=== PATIENT | female | born 1955 | race Caucasian/White ===

== ENCOUNTER → 2019-10-29 10:25 | Outpatient (CLI) | payer OTHER, SELFPAY ==
--- NOTE | ~2019-10-29 | XR_ITS ---
EXAMINATION: XR chest 2V DATE: 10/29/2019 10:43 INDICATION: Shortness of breath. TECHNIQUE: Frontal and lateral views of the chest were obtained. COMPARISON: Chest 2 views 01/21/2007 FINDINGS: There is mild scarring at the lung apices. No pleural effusion or pneumothorax. There is a moderate-sized hiatal hernia. The heart size is normal. IMPRESSION: 1. Mild scarring at the lung apices. 2. Moderate-sized hiatal hernia. Reviewed, dictated and finalized at location B.
== END ==
PROVIDERS: PCP Family Medicine Adolescent Medicine; Visit Provider Physician Assistant
DX: R91.8 Other nonspecific abnormal finding of lung field (principal); K44.9 Diaphragmatic hernia without obstruction or gangrene
CPT/HCPCS: 71046

== ENCOUNTER → 2020-01-07 11:21 | Outpatient (CLI) | payer OTHER, SELFPAY ==
--- NOTE | ~2020-01-07 | US_ITS ---
EXAMINATION: US transvaginal DATE: 01/07/2020 11:56 INDICATION: Left ovarian cyst TECHNIQUE: Multiple endovaginal sonographic images of the pelvis were obtained. COMPARISON: 01/01/2019 FINDINGS: The uterus measures 6.5 x 3.2 x 3.6 cm. The endometrial complex measures 5 mm. The right ov damián measures 1.1 x 1.1 x 1.7 cm. The left ovary measures 2.9 x 2.6 x 3.0 cm and contains a stable 2.9 cm cyst. There is normal vascular flow in the ovaries. There is no free fluid in the pelvis. IMPRESSION: 1. Stable cyst of the left ovary. Could consider decrease in frequency of follow-up given stability ( typical follow-up is annually in a postmenopausal female). Reviewed, dictated and finalized at location A. ING SERVICES OFFICER IMPRESSION: 1. Stable cyst of the left ovary. Could consider decrease in frequency of follo w-up given stability (typical follow-up is annually in a postmenopausal female) .
== END ==
PROVIDERS: PCP Family Medicine Adolescent Medicine; Visit Provider Nurse Practitioner
DX: N83.202 Unspecified ovarian cyst, left side (principal)
CPT/HCPCS: 76830

== ENCOUNTER → 2020-03-03 10:01 | Outpatient (CLI) | payer OTHER, SELFPAY ==
--- NOTE | ~2020-03-03 | MM_ITS ---
EXAMINATION: MM screening [facility] BI w graeme HISTORY: Screening mammogram TECHNIQUE: Craniocaudal and mediolateral oblique 3-D tomosynthesis images were obtained and synthetic 2-D images were generated. CAD analysis was submitted and interpreted. COMPARISON: 02/05/2019, 01/31/2018, 01/01/2017 BREAST PARENCHYMAL COMPOSITION: There are scattered areas of fibroglandular density. FINDINGS: There is no evidence of suspicious mass, calcification, or architectural distortion to sugg est malignancy in either breast. There has been no suspicious interval change. IMPRESSION: 1. No mammographic evidence of malignancy. 2. Recommend routine screening mammography in one year. BI-RADS Category 1: Negative Reviewed, dictated and finalized at location A. SERVICE PERSON
== END ==
PROVIDERS: Visit Provider Nurse Practitioner
DX: Z12.31 Encounter for screening mammogram for malignant neoplasm of breast (principal)
CPT/HCPCS: 77063; 77067

== ENCOUNTER → 2020-11-24 01:45 | Outpatient (CLI) | payer OTHER, SELFPAY ==
[2020-11-24 17:06] LABS: SARS-CoV-2 RNA PCR Negative
== END ==
PROVIDERS: PCP Family Medicine Adolescent Medicine; Visit Provider Physician Assistant
DX: Z20.822 Contact with and (suspected) exposure to COVID-19 (principal)
CPT/HCPCS: C9803; U0003; U0005

== ENCOUNTER 2022-09-07 15:23 | Outpatient (CLI) | payer MEDICARE, SELFPAY ==
--- NOTE | ~2022-09-07 | US_ITS ---
EXAMINATION: US transvaginal DATE: 09/07/2022 15:56 INDICATION: Left ovarian cyst TECHNIQUE: Multiple endovaginal sonographic images of the pelvis were obtained. COMPARISON: 01/07/2020 FINDINGS: The uterus measures 5.4 x 3.4 x 3.6 cm. The endometrial complex measures 4 mm in thickness. The righ t ovary is not visualized. The left ovary measures 3.3 x 3.2 x 3.3 cm. No interval change in a 2.9 x 2.7 x 2.6 cm anechoic left ovarian cyst. Subtle vascular flow at the left ovary but not within the ov elle cyst on color Doppler. There is no free fluid in the pelvis. IMPRESSION: 1. No interval change in a simple appearing 2.7 cm left ovarian cyst. Reviewed, dictated and finalized at location B.
== END 2022-09-07 15:24 ==
LOC: MICIMG 15:27
PROVIDERS: PCP Nurse Practitioner; Visit Provider Nurse Practitioner
DX: N83.202 Unspecified ovarian cyst, left side (principal)
CPT/HCPCS: 76830

== ENCOUNTER → 2022-12-17 11:01 | Outpatient (CLI) | payer MEDICARE, SELFPAY ==
--- NOTE | ~2022-12-17 | MM_ITS ---
EXAMINATION: MM screening [facility] BI w graeme HISTORY: Screening TECHNIQUE: Craniocaudal and mediolateral oblique 3-D tomosynthesis images were obtained and synthetic 2-D images were generated. CAD analysis was submitted and interpreted. COMPARISON: Comparison to multiple prior studies sequentially, with oldest reviewed study dated 09/2014. BREAST PARENCHYMAL COMPOSITION: Breast composed of scattered areas of fibroglandular density FINDINGS: There is no evidence of suspicious mass, calcification, or architectural distortion to sugg est malignancy in either breast. There has been no suspicious interval change. IMPRESSION: 1. No mammographic evidence of malignancy. 2. Recommend routine screening mammography in one year. BI-RADS Category 1: Negative Reviewed, dictated and finalized at location A.
--- NOTE | ~2022-12-17 | DEXA_ITS ---
Bone Density Report Name: NIMA REYNOSO Age: 67 Sex: Female Ethnicity: White Date of : 1955 Indication: postmenopausal; screening for osteoporosis; height loss; Referring Provider: BARRON, LEROY Study: Bone densitometry was performed. Exam Date: December 17, 2022 Accession number: [id number] Bone Density: Region BMD T-score Z-score Classification AP Spine (L1-L4) 1.106 0.5 2.4 Normal Femoral Neck (Left) 0.712 -1.2 0.4 Osteopenia Total Hip (Left) 0.934 -0.1 1.2 Normal Femoral Neck (Right) 0.722 -1.1 0.4 Osteopenia Total Hip (Right) 0.863 -0.7 0.7 Normal Total Hip Mean 0.899 -0.4 1.0 Normal World Health Organization criteria for BMD impression classify patients as: Normal (T-score at or above -1.0), Osteopenia (T-score between -1.0 and -2.5), or Osteoporosis (T-score at or below -2.5). 10-year Fracture Risk(1): Major Osteoporotic Fracture 8.0% Hip Fracture 0.7% Reported Risk Factors: [place] (), Neck BMD=0.712, BMI=35.5 (1) FRAX(R) Version 3.08. Fracture probability calculated for an untreated patient. Fracture probability may be lower if the patient has received treatment. Previous Exams: Region Exam Age BMD T-score BMD Change BMD Change Date g/cm2 vs Baseline vs Previous AP Spine(L1-L4) 12/17/2022 67 1.106 0.5 0.040 0.035 02/05/2019 63 1.071 0.2 0.005 -0.001 01/01/2017 61 1.072 0.2 0.006 0.006 03/17/2012 56 1.066 0.2 Total Hip(Left) 12/17/2022 67 0.934 -0.1 0.062 0.025 02/05/2019 63 0.909 -0.3 0.037* 0.018 01/01/2017 61 0.891 -0.4 0.019 0.019 03/17/2012 56 0.872 -0.6 Total Hip(Right) 12/17/2022 67 0.863 -0.7 -0.006 0.011 02/05/2019 63 0.851 -0.7 -0.017 -0.007 01/01/2017 61 0.859 -0.7 -0.010 -0.010 03/17/2012 56 0.868 -0.6 *Denotes significance at 95% confidence level, LSC for AP Spine = 0.022 g/cm2, LSC for Total Hip = 0.027 g/cm2 Clinical Information Provided by Patient: Has used the following medications: Vitamin D Patient maximum height was 65 Menopause Age: 53 No regular weight bearing exercise Drinks caffeinated beverages Onset of menses at age 12 Number of children 2 Impression: The patient has low bone mass, based on the Left Femoral Neck T-score. The
== END ==
PROVIDERS: PCP Nurse Practitioner; Visit Provider Nurse Practitioner
DX: Z12.31 Encounter for screening mammogram for malignant neoplasm of breast (principal); Z78.0 Asymptomatic menopausal state; M85.88 Other specified disorders of bone density and structure, other site
CPT/HCPCS: 77063; 77067; 77080

== ENCOUNTER 2024-01-31 11:13 | Outpatient (CLI) | payer MEDICARE, SELFPAY ==
--- NOTE | ~2024-01-31 | MM_ITS ---
EXAMINATION: MM screening [facility] BI w graeme HISTORY: Screening mammogram TECHNIQUE: Craniocaudal and mediolateral oblique 3-D tomosynthesis images were obtained and synthetic 2-D images were generated. CAD analysis was submitted and interpreted. COMPARISON: No prior mammogram is available for comparison at this institution. BREAST PARENCHYMAL COMPOSITION: There are scattered areas of fibroglandular density. FINDINGS: Approximately 3 x 5 mm circumscribed low-density opacity is noted in the posterior mid righ t breast, likely a benign intramammary lymph node, not severely change since 03/03/2020. 2.9 x 4 mm circumscribed opacity is noted in the lower mid left breast (craniocaudal graeme symphysis i mage ; MLO graeme symphysis image /); diagnostic left mammogram and left breast ultrasound exa mination are recommended. Otherwise there is no evidence of suspicious mass, calcification, or architectural distortion to sugg est malignancy in either breast. There has been no other suspicious interval change. IMPRESSION: 1. 2.9 x 4 mm are clear of opacity in the lower mid left breast 2. Diagnostic left mammogram and left breast ultrasound examination recommended BI-RADS Category 0: Incomplete: Needs additional imaging evaluation. Reviewed, dictated and finalized at location A. AL ECOLOGIST
== END 2024-01-31 11:14 | disposition home or self-care (01) ==
LOC: MICIMG 11:13
PROVIDERS: PCP Family Medicine Adolescent Medicine; Visit Provider Nurse Practitioner
DX: Z12.31 Encounter for screening mammogram for malignant neoplasm of breast (principal)
CPT/HCPCS: 77063; 77067

== ENCOUNTER 2024-02-21 08:00 | Outpatient (CLI) | payer MEDICARE, SELFPAY ==
--- NOTE | ~2024-02-21 | MMUS_ITS ---
EXAMINATION: MM diagnostic [facility] LT w graeme, US breast LT limited HISTORY: Follow-up left breast mass TECHNIQUE: Additional 3-D tomosynthesis images of the left breast were performed and synthetic 2-D im ages were generated. CAD analysis was submitted and interpreted. High resolution Limited left breast ultrasound was performed. COMPARISON: Comparison to multiple prior studies sequentially, with oldest reviewed study dated 12/04. BREAST PARENCHYMAL COMPOSITION: Not dense: There are scattered areas of fibroglandular density. FINDINGS: MAMMOGRAPHIC FINDINGS: There is a small low-density mass in the lower central aspect of the left breast measuring 4 mm.. The re are no suspicious calcifications or architectural distortion. ULTRASOUND: Limited left breast ultrasound: Near the nipple there is a 4 mm cyst corresponding to the mammographi c finding. No sonographic evidence for malignancy. IMPRESSION: 1. No evidence for malignancy in the left breast. Benign finding. 2. Routine yearly screening mammogram and regular clinical breast examination are recommended. BI-RADS CATEGORY 2 - BENIGN FINDINGS Reviewed, dictated and finalized at location B. E SERVANT IMPRESSION: 1. No evidence for malignancy in the left breast. Benign finding. 2. Routine yearly screening mammogram and regular clinical breast examination a re recommended. BI-RADS CATEGORY 2 - BENIGN FINDINGS
== END 2024-02-21 08:01 | disposition home or self-care (01) ==
PROVIDERS: PCP Family Medicine Adolescent Medicine; Visit Provider Obstetrics & Gynecology Gynecology
DX: R92.8 Other abnormal and inconclusive findings on diagnostic imaging of breast (principal)
CPT/HCPCS: 76642; 77061; 77065; G0279

== ENCOUNTER 2024-09-09 00:54 | Day surgery (SDC) | payer MEDICARE, SELFPAY ==
[2024-08-19 13:33] VITALS: BMI 33.3
--- OUTSIDE RECORDS SUMMARY | 2024-09-09 00:59 | XMS_ITS | Encounter Summary ---
Author Organization [facility] Address 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
--- OUTSIDE RECORDS SUMMARY | 2024-09-09 00:59 | XMS_ITS | Clinical Summary ---
Author Organization [facility] Administrative Offices Address [address] [place] [address] Care Team Providers Care Transportation Aid Name Role Phone Jarrett Rodgers MD Primary Care Provider +1- [phone] Family History * Patient is adopted Medical History Relation Name Comments Breast Cancer Neg Hx unknown patien t is adopted Ovarian Cancer Neg Hx unknown patie nt is adopted Social History Tobacco Use Types Packs/Day Years Used Date Smoking Tobacco: Never Assessed Comments Unknown Sex and Gender Information Value Date Recorded Sex Assigned at Not on file Legal 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 Female 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 Gender Identity Not on file Sexual Orientation Not on file Plan of Treatment Health Maintenance Due Date Last Done Comments DTAP/TDAP/TD VACCINES (1 - Tdap) 05/19/1975 COLORECTAL SCREENING 2001 Colorectal Cancer Screening 2001 FIT-DNA Q 3 years 2001 FIT/FOBT Q 1 year 2001 Flex Sig/CT Colonography Q 5 years 2001 PNEUMOCOCCAL VACCINE 50+ YEA RS (1 of 1 - PCV) 2006 ZOSTER VACCINE (1 of 2) 2006 BREAST CANCER SCREENING 12/28/2011 12/28/19 11, 12/20/2009, 12/22/2007 OSTEOPOROSIS SCREENING 2021 INFLUENZA VACCINE (#1) 2024 RSV VACCINE (60+ or ) (1 - 1-dose 75+ series) 05/19/2031 Procedures Procedure Name Priority Date/Time Associated Diagnosis Comments MAMMO SCREEN BILAT W OR WO CAD Routine 12/27/2010 9:56 AM CDT Other screening mammogram from Last 3 Months or Most Recently Relevant to Health Maintenance Results * MAMMO DIGITAL SCREEN BILAT (12/27/2010 9:56 AM CDT) Anatomical Region Laterality Modality Breast Bilateral Mammography 12/27/2010 9:56 AM CDT Impressions 12/28/2010 4:17 PM CDT IMPRESSION: Stable screening mammogram Recommend routine followup OVERALL ASSESSMENT: BI-RADS 1 - Negative Narrative 12/28/2010 4:17 PM CDT BILATERAL SCREENING DIGITAL MAMMOGRAMS WITH COMPUTER ASSISTED DIAGNOSIS DATE OF EXAM: 12/27/10 HISTORY: Annual screening study. FINDINGS: Comparison is made to 12/22/07. The images were reviewed using the CAD system. The breast parenchyma is heterogeneously dense. No new dominant masses, suspicious calcifications or areas of parenchymal asymmetry or distortion are identified. Procedure Note Beth Robertson MD - 12/28/2010 BILATERAL SCREENING DIGITAL MAMMOGRAMS WITH COMPUTER ASSISTED DIAGNOSIS DATE OF EXAM: 12/27/10 HISTORY: Annual screening study. FINDINGS: Comparison is made to 12/22/07. The images were reviewed using the CAD system. The breast parenchyma is heterogeneously dense. No new dominant masses, suspicious calcifications or areas of parenchymal asymmetry or distortion are identified. IMPRESSION IMPRESSION: Stable screening mammogram Recommend routine followup OVERALL ASSESSMENT: BI-RADS 1 - Negative us Yara Alegria MD MAMMO ORDERABLES Final Re sult from Last 3 Months or Most Recently Relevant to Health Maintenance Insurance BCBS BLUE ACCESS/TRUE BLUE PPO Care Teams Transportation Aid Relationship Specialty Start Date End Date Jarrett Rodgers MD PCP - General 10/25/08
--- OUTSIDE RECORDS SUMMARY | 2024-09-09 00:59 | XMS_ITS | Encounter Summary ---
Author Organization [facility] Address 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
--- OUTSIDE RECORDS SUMMARY | 2024-09-09 00:59 | XMS_ITS | Encounter Summary ---
Author Organization [employer] Address 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
--- OUTSIDE RECORDS SUMMARY | 2024-09-09 00:59 | XMS_ITS | Encounter Summary ---
Author Organization [employer] [facility] Address 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
--- OUTSIDE RECORDS SUMMARY | 2024-09-09 00:59 | XMS_ITS | Encounter Summary ---
Author Organization [facility] Address 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 Gender Identity Not on file Sexual Orientation Not on file documented as of this encounter Plan of Treatment Not on file documented as of this encounter Procedures Procedure Name Priority Date/Time Associated Diagnosis Comments MAMMO SCREENING BILAT Routine 12/22/2007 3:32 PM CDT documented in this encounter Results * MAMMO SCREENING BILAT (12/22/2007 3:32 PM CDT) Anatomical Region Laterality Modality Breast Bilateral Other 12/22/2007 3:32 PM CDT Narrative 12/23/2007 1:17 PM CDT [facility] [address] [place], [place] [address] Admit Date: 12/22/2007 NIMA REYNOSO Sex: F Admit Prov: YARA GILLIAM Date: 1955 Primary Care Prov: JACKY MACK CMRN: [id number] [facility] [address] [place] [address] IMAGING SERVICES Ordering Prov: DOCTOR, MEÑO O Accession Number: [id number] Interpretation BILATERAL SCREENING MAMMOGRAM 12/22/2007 Reason for this examination: Annual screening study. FINDINGS: The parenchyma is very dense bilaterally. This lowers the sensitivity of mammography in detecting disease. There is no mass, malignant calcification, lymphadenopathy, architectural distortion or other sign of malignancy. No change since 12/2005. SUMMARY: Dense mammary parenchyma. No mammographic evidence of malignancy. Overall assessment: BIRADS category 1 - Negative Assessment BIRADS: 1-Negative Recommendation: Normal interval follow-up Dictated by: PHILIPPE MORATAYA Electronically signed by: PHILIPPE MORATAYA 12/23/2007 13:16 Transcribed: 12/23/2007 13:00 AMK Procedure Note Philippe Morataya MD - 12/23/2007 [facility] [address] [place], [place] [address] Admit Date: 12/22/2007 NIMA REYNOSO Sex: F Admit Prov: [id number] -YARA BLOUNT Date: 1955 Primary Care Prov: JACKY MACK CMRN: [id number] [facility] [address] [place] [address] IMAGING SERVICES Ordering Prov: DOCTOR, MEÑO O Interpretation BILATERAL SCREENING MAMMOGRAM 12/22/2007 Reason for this examination: Annual screening study. FINDINGS: The parenchyma is very dense bilaterally. This lowersthe sensitivity of mammography in detecting disease. There is no mass, malignant calcification, lymphadenopathy, architectural distortion orother sign of malignancy. No change since 12/2005. SUMMARY: Dense mammary parenchyma. No mammographic evidence of malignancy. Overall assessment: BIRADS category 1 - Negative Assessment BIRADS: 1-Negative Recommendation: Normal interval follow-up Dictated by: PHILIPPE MORATAYA Electronically signed by: PHILIPPE MORATAYA 12/23/2007 13:16 Transcribed: 12/23/2007 13:00 AMK us History Conversion MAMMO ORDERABLES Final Result documented in this encounter Visit Diagnoses Diagnosis Other screening mammogram documented in this encounter Care Teams [employer] Relationship Specialty Start Date End Date Jacky Rodgers MD PCP - General 10/25/08 documented as of this encounter
--- OUTSIDE RECORDS SUMMARY | 2024-09-09 00:59 | XMS_ITS | Encounter Summary ---
Author Organization [employer] Address [address] [place] [address] Care Team Providers Care Mds Manager Name Role Phone Jarrett Rodgers MD Primary Care Provider +1- [phone] Encounter Details Date Type Department Care Team (Late st Contact Info) Description 12/09/2001 Outpatient Historical HIS MAMM Yara Delcid MD [address] [address] SCREENING MAMM-MAILG NEOPL-OTHER (Primary Dx) Social History Tobacco Use Types Packs/Day Years Used Date Smoking Tobacco: Never Assessed Comments Unknown Sex and Gender Information Value Date Recorded Sex Assigned at Not on file Legal Sex Female 3:20 AM TUTOR COORDINATOR Gender Identity Not on file Sexual Orientation Not on file documented as of this encounter Plan of Treatment Not on file documented as of this encounter Visit Diagnoses Diagnosis Other screening mammogram- Primary documented in this encounter Care Teams Mds Manager Relationship Specialty Start Date End Date Jarrett Rodgers MD PCP - General 10/25/08 documented as of this encounter
--- OUTSIDE RECORDS SUMMARY | 2024-09-09 00:59 | XMS_ITS | Encounter Summary ---
Author Organization [facility] Address 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
--- OUTSIDE RECORDS SUMMARY | 2024-09-09 00:59 | XMS_ITS | Encounter Summary ---
Author Organization [facility] Address [address] [place] [address] Care Team Providers Care Slime Plant Operator Helper Name Role Phone Jarrett Rodgers MD Primary Care Provider +1- [phone] Encounter Details Date Type Department Care Team (Late st Contact Info) Description 12/23/2003 Outpatient Historical HIS [facility] Yara Chin MD [address] [address] UNSP ABNORMAL MAMMOGRAM (Primary Dx) Social History Tobacco Use Types Packs/Day Years Used Date Smoking Tobacco: Never Assessed Comments Unknown Sex and Gender Information Value Date Recorded Sex Assigned at Not on file Legal Sex Female 3:20 AM MATERIAL FLOW ANALYST Gender Identity Not on file Sexual Orientation Not on file documented as of this encounter Plan of Treatment Not on file documented as of this encounter Visit Diagnoses Diagnosis Abnormal mammogram, unspecified- Primary documented in this encounter Care Teams Slime Plant Operator Helper Relationship Specialty Start Date End Date Jarrett Rodgers MD PCP - General 10/25/08 documented as of this encounter
--- OUTSIDE RECORDS SUMMARY | 2024-09-09 00:59 | XMS_ITS | Encounter Summary ---
Author Organization [employer] Address 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
[2024-09-09 10:56] VITALS: BP 136/68; PULSE 96; RESP 18; TEMP 36.9; O2SAT 100; BMI 34.2
[2024-09-09] MEDS: LACTATED RINGERS 1,000 ML 150 ML IV CONT (11:09)
--- NOTE | 2024-09-09 12:00 | P.PNAN_ITS ---
Anes - Initial Pre Proc Eval Procedure: Operation Date: 09/09/24 12:30 Proposed Procedures p Screening Colonoscopy - Jose Garcia MD Date/Time: 09/09/24 12:00 Surgeon: Jose Garcia MD Pre Op Diagnosis: screening Patient Data Age: 69 Gender: F Height: 1.65 m Weight: 93.2 kg Last Vital Signs Temp 98.5 F 09/09/24 10:56 Pulse 96 09/09/24 10:56 Resp 18 09/09/24 10:56 BP 136/68 09/09/24 10:56 Pulse Ox 100 09/09/24 10:56 O2 Del Method Room Air 09/09/24 10:56 Allergies Allergy/AdvReac Type Severity Reaction Status Date / Time codeine Allergy Mild Nausea Verified 09/09/24 11:02 latex Allergy Mild RASH WHEN Verified 09/09/24 11:02 WEARS LATEX GLOVES prednisone AdvReac Severe Rash Verified 09/09/24 11:02 Home Medications ?Medication ?Instructions ?Recorded ?Confirmed ?Type cholecalciferol (vitamin D3) 25 25 mcg PO DAILY 05/25/22 09/09/24 History mcg (1,000 unit) capsule ferrous sulfate 325 mg (65 mg 325 mg PO DAILY 05/25/22 09/09/24 History iron) tablet (Feosol) calcium carbonate (Calcium 500) 500 mg PO BID 06/04/23 09/09/24 History lisinopril 20 mg tablet 20 mg PO DAILY #90 tabs 06/01/24 09/09/24 Rx potassium 20 mg chewable tablet 20 mg PO DAILY 09/09/24 09/09/24 History Patient hx anesthesia problems: none Family hx anesthesia problems: none Results Review: All pre-operative results and documents have been reviewed as part of the pre- operative evaluation. [facility] Past Medical History Medical History Hypertension Surgical History Surgical History History of surgery of uterus polyp removal 06/2018 Social History Social History Smoking status: Never smoker Second hand tobacco smoke exposure: No Alcohol intake: never Alcohol use details: Socially Substance use: never Substance use type: does not use Living arrangements: with family Occupation/Education: retired Gender identity (if verbalized by the patient): Female Sexual Orientation (if Verbalized by the Patient): Straight or Heterosexual Spiritual care concerns: No Agree to blood products: Yes Anes - Eval Final PreProcedure Day of Procedure 09/09/24 12:00 Patient weight: obese Lungs: normal air movement Airway: Mallampati scale class II Neurological: alert and oriented Last oral intake: >/= 8 hours ASA classification: II Emergent: no Anesthetic plan: proceed Anesthesia type and monitoring: general GIVS and standard monitoring Results Review: All pre-operative results and documents have been reviewed as part of the pre- operative evaluation. HTN, BMI 34. Informed Consent: The patient's anesthetic plan and its attendant risks and benefits were discussed with the patient/family/POA. Questions were solicited and answers provided to the satisfaction of the patient/family/POA.
--- NOTE | 2024-09-09 13:14 | PM.IMHP ---
H&P: HPI History of Present Illness Date/Time: 09/09/24 13:14 Chief Complaint: Screening colonoscopy Narrative: This is the patient's 2nd colonoscopy. There are no GI symptoms and there is no family history of colorectal cancer. Review of Systems Review of Systems: All systems reviewed & are unremarkable except as noted in HPI and below PMFSH Past Medical History Medical History Hypertension Surgical History Surgical History History of surgery of uterus polyp removal 06/2018 Social History Social History Smoking status: Never smoker Second hand tobacco smoke exposure: No Alcohol intake: never Alcohol use details: Socially Substance use: never Substance use type: does not use Living arrangements: with family Occupation/Education: retired Gender identity (if verbalized by the patient): Female Sexual Orientation (if Verbalized by the Patient): Straight or Heterosexual Spiritual care concerns: No Agree to blood products: Yes Meds Home Medications and Allergies Home Medications ?Medication ?Instructions ?Recorded ?Confirmed ?Type cholecalciferol (vitamin D3) 25 25 mcg PO DAILY 05/25/22 09/09/24 History mcg (1,000 unit) capsule ferrous sulfate 325 mg (65 mg 325 mg PO DAILY 05/25/22 09/09/24 History iron) tablet (Feosol) calcium carbonate (Calcium 500) 500 mg PO BID 06/04/23 09/09/24 History lisinopril 20 mg tablet 20 mg PO DAILY #90 tabs 06/01/24 09/09/24 Rx potassium 20 mg chewable tablet 20 mg PO DAILY 09/09/24 09/09/24 History Allergies Allergy/AdvReac Type Severity Reaction Status Date / Time codeine Allergy Mild Nausea Verified 09/09/24 11:02 latex Allergy Mild RASH WHEN Verified 09/09/24 11:02 WEARS LATEX GLOVES prednisone AdvReac Severe Rash Verified 09/09/24 11:02 Vital Signs Vital Signs - 24 hr 09/09/24 10:56 Temperature 98.5 F Pulse Rate 96 Respiratory Rate 18 Blood Pressure 136/68 Pulse Oximetry 100 Oxygen Delivery Room Air Exam Const: General: cooperative and healthy appearing Resp: Effort & Inspection: normal respiratory effort and able to speak in complete sentences Auscultation: clear to auscultation bilaterally Cardio: Rate: regular rate Rhythm: regular rhythm GI: Inspection: normal to inspection GI Palp: No No hepatosplenomegaly present Auscultation: normal bowel sounds Rectal Exam: deferred Skin: General skin exam: normal color Psych: Appearance: grossly normal Mental Status: mental status grossly normal Assessment and Plan Assessment and plan (1) Colon cancer screening: Code(s): Z12.11 - Encounter for screening for malignant neoplasm of colon Status: Acute Assessment and Plan: The patient is deemed a good candidate for the procedure. Consent signed. Will proceed.
--- NOTE | 2024-09-09 13:39 | S_PTH ---
PATIENT: Ana María Redmond LOC: [facility] U#:[id number] AGE/SX: 69/F ROOM: RE09/09/[address]: Jose Garcia MD : 1955 BED: DIS: 09/09/2024 SPEC #: [id number] RECD: 09/09/24 14:31 STATUS: PHILOMENA REQ #: [id number] VINCE: 09/09/24 13:[address]: Jose Garcia DEPT: [facility] Surgical RECD BY: Cori Shepard ENTERED: 09/09/24 14:32 SP TYPE: Surgical OTHR DR: Jarrett Rodgers MD Tissues: A - Colon Polypectomy B - Colon Polypectomy Procedures: Hematoxylin and Eosin Stain Gross and Microscopic Level 4
[2024-09-09 13:42] VITALS: BP 105/57; PULSE 84; RESP 20; O2SAT 100
[2024-09-09 13:52] VITALS: BP 109/58; PULSE 76; RESP 18; O2SAT 100
[2024-09-09 14:02] VITALS: BP 124/62; PULSE 74; RESP 18; O2SAT 100
== END 2024-09-09 14:16 | disposition home or self-care (01) ==
PROVIDERS: PCP Family Medicine Adolescent Medicine; Referring Provider Nurse Practitioner Family; Visit Provider Internal Medicine Gastroenterology
PROC: 0DJD8ZZ Inspection of Lower Intestinal Tract, Via Natural or Artificial Opening Endoscopic (ICD-10-PCS; CPT 45378; principal; 2024-09-09 12:30)
DX: Z12.11 Encounter for screening for malignant neoplasm of colon (principal); D12.2 Benign neoplasm of ascending colon; K51.40 Inflammatory polyps of colon without complications; K57.30 Diverticulosis of large intestine without perforation or abscess without bleeding; I10 Essential (primary) hypertension; E66.9 Obesity, unspecified; Z68.34 Body mass index [BMI] 34.0-34.9, adult; Z98.890 Other specified postprocedural states
CPT/HCPCS: 45385; 88305; J2003; J2704; J7120

== ENCOUNTER 2024-09-18 09:32 | Outpatient (CLI) | payer MEDICARE, SELFPAY ==
--- NOTE | ~2024-09-18 | US_ITS ---
US thyroid INDICATION: Enlarged thyroid gland TECHNIQUE: Real-time sonographic images of the thyroid gland were obtained. COMPARISON: No prior studies for comparison. FINDINGS: The right thyroid lobe measures 3.9 x 1.4 x 1.2 cm. The left thyroid lobe measures 5.5 x 2 .7 x 2.3 cm. In the right lobe there is a 4 mm cyst. Left lobe is diffusely heterogeneous with multip le ill-defined masses, largest of which measures 3.4 x 2.4 x 2.2 cm. This mass is almost completely s olid, hypoechoic, wider than tall, ill-defined margins with punctate echogenic foci, TR 5. Smaller ma sses identified measuring 8 mm which is solid, hypoechoic, wider than tall, smoothly marginated witho ut echogenic foci, TR 4. IMPRESSION: 1. Suspicious left thyroid mass measuring 3.4 cm, TR5. Ultrasound-guided fine-needle aspiration biop sy recommended. Reviewed, dictated and finalized at location A. IMPRESSION: 1. Suspicious left thyroid mass measuring 3.4 cm, TR5. Ultrasound-guided fine- needle aspiration biopsy recommended.
== END 2024-09-18 09:33 | disposition home or self-care (01) ==
LOC: MICIMG 09:33
PROVIDERS: PCP Family Medicine Adolescent Medicine; Visit Provider Nurse Practitioner
DX: E07.9 Disorder of thyroid, unspecified (principal)
CPT/HCPCS: 76536

== ENCOUNTER → 2024-12-04 09:20 | Outpatient (CLI) | payer MEDICARE, SELFPAY ==
--- NOTE | ~2024-12-04 | XR_ITS ---
Examination: XR chest 2V Clinical History: R06.00 - Dyspnea, unspecified Comparison: 10/29/2019 Technique: PA and Lateral Findings: Cardiomediastinal silhouette normal size and configuration. Lungs clear. No acute bony abnormality. Large hiatal hernia. IMPRESSION: 1. No acute cardiopulmonary findings. Reviewed, dictated and finalized at location R.
== END ==
LOC: EXPCRAD 09:27
PROVIDERS: PCP Nurse Practitioner Family; Visit Provider Nurse Practitioner Family
DX: R06.00 Dyspnea, unspecified (principal)
CPT/HCPCS: 71046

== ENCOUNTER 2024-12-18 14:11 | Outpatient (CLI) | payer MEDICARE, SELFPAY ==
--- NOTE | ~2024-12-18 | US_ITS ---
US abdomen limited Indication: R10.12 - Left upper quadrant pain Comparison: None Technique: Haywood-scale and color Doppler images were obtained. Findings: LIVER: Mild increased echogenicity of the liver. . GALLBLADDER/BILIARY: Cholelithiasis, no abnormal thickening or pericholecystic fluid. CBD 3 mm. Bivins sign negative. PANCREAS: Pancreas limited by bowel gas. Right Kidney: Right kidney was not imaged. Impression: 1. Cholelithiasis. Mild hepatic steatosis Reviewed, dictated and finalized at location P. Impression: 1. Cholelithiasis. Mild hepatic steatosis
== END 2024-12-18 14:12 | disposition home or self-care (01) ==
LOC: MICIMG 14:11
PROVIDERS: PCP Nurse Practitioner Family; Visit Provider Nurse Practitioner Family
DX: K80.20 Calculus of gallbladder without cholecystitis without obstruction (principal); K76.0 Fatty (change of) liver, not elsewhere classified; R10.12 Left upper quadrant pain; D50.9 Iron deficiency anemia, unspecified; E11.9 Type 2 diabetes mellitus without complications; I10 Essential (primary) hypertension
CPT/HCPCS: 76705

== ENCOUNTER 2024-12-31 15:10 | Outpatient (CLI) | payer MEDICARE, SELFPAY ==
--- OUTSIDE RECORDS SUMMARY | 2024-12-31 15:00 | XMS_ITS | Encounter Summary ---
Author Organization [facility] Address [address] [place] [address] Care Team Providers Care Tube Heater Name Role Phone Jarrett Rodgers MD Primary Care Provider +1- [phone] Reason for Visit * Reason Comments Establish Care Encounter Details Date Type Department Care Team (Late st Contact Info) Description 12/31/2024 3:00 PM CDT Office Visit [facility] Oncology and Hematology - [place] [address] [facility] [address] [place] [address] Jw Kennedy MD [address] [facility] [address] [place] [address] Chronic anemia (Primary Dx) Social History Tobacco Use Types Packs/Day Years Used Date Smoking Tobacco: Never Smokeless Tobacco: Never Tobacco Cessation:Counseling Given: Not Answered Alcohol Use Standard Drinks/Week Comments Yes 0 (1 standard drink = 0.6 oz pur e alcohol) Occasionly Comments Unknown Sex and Gender Information Value Date Recorded Sex Assigned at Not on file Legal Sex Female 3:20 AM BRUSHER HAND Gender Identity Not on file Sexual Orientation Not on file documented as of this encounter Last Filed Vital Signs Vital Sign Reading Time Taken Comments Blood Pressure 154/72 12/31/2024 2:56 PM CDT Pulse 90 12/31/2024 2:39 PM CDT Temperature 36.7 C (98 F) 12/31/2024 2:39 PM CDT Respiratory Rate 15 12/31/2024 2:39 PM CDT Oxygen Saturation 94% 12/31/2024 2:39 PM CDT Inhaled Oxygen Concentration - - Weight 98.4 kg (217 lb) 12/31/2024 2:39 PM CDT Height 165.1 cm (5' 5) 12/31/2024 2:39 PM CDT Body Mass Index 36.11 12/31/2024 2:39 PM CDT documented in this encounter Progress Notes * Jw Kennedy MD - 12/31/2024 2:48 PM CDT Hematology-oncology consult Note Requesting Physician Primary Care Physician Jarrett Rodgres MD Problem list There is no problem list on file for this patient. Previous TREATMENT ? Measurable Disease ? Reason for Visit Ana María Redmond is a 69 y.o. female who was referred for consultation for chronic anemia. History of present illness This is a pleasant 69-year-old slightly obese female with history of recently diagnosed gastroesophageal reflux disease and sleep apnea along with iron deficiency anemia for 3 years duration. She has been taking iron 65 mg once a day for 3 years duration. She is also taking vitamin B12 1 mg daily. She denies any bleeding including melena and hematochezia. She denies being a vegetarian but rarely eat red meat. She denies any previous stomach surgeries. Patient had last colonoscopy doneon September 2024 that showed ascending colon and sigmoid colon polyps with diverticulosis without any bleeding. She denies any female bleeding. Complaining of tiredness and fatigue along with some shortness of breath intermittent lightheadedness and dizziness. No other new complaints. Past Medical History Past Medical History: Diagnosis Date Hypertension GERD Sleep apnea Surgical History Past Surgical History: Procedure Laterality Date HX SECTION Medications Current Outpatient Medications Medication Sig Dispense Refill lisinopriL (PRINIVIL) 20 mg tablet Take 1 Tablet by mouth daily. omeprazole (PriLOSEC) 40 mg Capsule, Delayed Release(E.C.) Take 40 mg by mouth daily. ferrous sulfate 325 mg (65 mg iron) tablet Take 325 mg by mouth daily. cyanocobalamin 1,000 mcg Tablet Take 1,000 mcg by mouth daily. POTASSIUM CHLORIDE ORAL Take by mouth. ascorbic acid, vitamin C, (VITAMIN C) 500 mg tablet Take 500 mg by mouth daily. CALCIUM CARBONATE ORAL Take by mouth. Magnesium Oxide 420 mg Tablet Take by mouth. Zinc Sulfate 66 mg Tablet Take by mouth. CALCIUM CARBONATE-VITAMIN D3 ORAL Take by mouth. No current facility-administered medications for this visit. Allergies Allergies Allergen Reactions Codeine Nausea and Vomiting Prednisone Rash Immunizations: There is no immunization history on file for this patient. Family History Family History Adopted: Yes Problem Relation Name Age of Onset Ovarian Cancer Neg Hx unknown patient is adopted Breast Cancer Neg Hx unknown patient is adopted Social History Social History Tobacco Use Smoking status: Never Smokeless tobacco: Never Substance Use Topics Alcohol use: Yes Comment: Occasionly Review of Systems Constitutional: Patient did not mention fever; no night sweats; no anorexia; no weight loss; complain of tiredness and fatigue NEENT: Patient did not mention headache; no change in vision; no change in hearing; no sore throat;no dysphagia Respiratory: Patient did not mention shortness of breath; no pleuritic chest pain; no cough; no hemoptysis Cardiac: Patient did not mention cardiac-like chest pain; no palpitations; no orthopnea; no PND; noDOE Breasts: Patient did not mention tenderness; no masses GI: Patient did not mention abdominal pain; no nausea; no vomiting; no diarrhea; no hematochezia; no melena : Patient did not mention dysuria; no frequency; no hesitancy; no hematuria PLANT CARE WORKER: Musculosketetal: Patient did not mention bone pain; no arthralgia; no joint swelling; no myalgia; Skin: Patient did not mention pruritis; no rash; no petechiae; no ecchymoses Endocrine: Patient did not mention polydipsia; no polyuria; no unusual weight gain Neuro: Patient did not mention headache; no change in vision; no sensory changes; no muscle weakness; no confusion; no seizures Psych: Patient did not mention anxiety; no depression; Physical Exam Vitals: As per nursing note Constitutional: Well developed, well nourished, no acute distress, non-toxic appearance Teeth and gum. No signs of infection or swelling. Eyes: PERRL, conjunctiva normal HEENT: Atraumatic, external ears normal, nose normal, oropharynx moist, no pharyngeal exudates. no sinus tenderness Neck- normal range of motion, no tenderness, supple Respiratory: No respiratory distress, normal breath sounds, no rales, no wheezing Cardiovascular: Normal rate, normal rhythm, no murmurs, no gallops, no rubs GI: Soft, nondistended, normal bowel sounds, nontender, no splenomegaly, no hepatomegaly, no mass, no rebound, no guarding : No costovertebral angle tenderness Musculoskeletal: No edema, no tenderness, no deformities. Back- no tenderness Integument: Well hydrated, no rash, Digits and nails inspection normal Lymphatic: No lymphadenopathy noted Neurologic: Alert & oriented x 3, CN 2-12 normal, normal motor function, normal sensory function, no focal deficits noted Psychiatric: Speech and behavior appropriate ? labs No results found for this or any previous visit (from the past 24 hours). Labs from December 04, 2024 showed hemoglobin 8.6 creatinine 0.9 iron 9 saturation 2 ferritin 16 B12 1247 Pathology ? Imaging & Other Studies Performance Status? Assessment / Plan: ? Iron deficiency anemia. Patient is a 69-year-old obese female with history of gastroesophageal reflux disease and sleep apnea who is been dealing with iron deficiency anemia for 3 years duration. She has been taking iron supplement for 3 years duration. She denies any bleeding including melena and hematochezia. Denies being a vegetarian. She denies any previous stomach surgeries. Her colonoscopy from September 2024 showed colon polyps and diverticulosis. I will order the workup for iron deficiency anemia that will include CBC with differential, CMP soluble transferrin receptor, iron profile, vitamin B12 and folic acid level. Based on the result we will decide about iron infusion. I also instructed her to increase oral iron to 65 mg twice a day with vitamin C 500 mg daily. If she fails to respond to the IV iron infusion then she will need complete GI evaluation with EGD and capsule enteroscopy. I have answered all the questions to patient's satisfaction. Follow-up with me in 1 week. Hypertension. Patient is on lisinopril. GERD. She is on Prilosec. Thank you very much for allowing me to participate in Ana María Redmond's evaluation and management.Please feel free to contact if I can be of any further assistance in your patient???s care requiring hematology or oncology evaluation. Sincerely, ? ? Jw Kennedy M.D. cell TOBACCO COUNSELING She is not a tobacco/nicotine user. Jw Kennedy MD ,12/31/2024 3:18 PM ? Total time spent 60 minutes, two third of the total time spent counseling patient [id number]. CC:? documented in this encounter Plan of Treatment Upcoming Encounters Date Type Department Care Team (Late st Contact Info) Description 01/07/2025 4:30 PM BRUSHER HAND Telephone Check Up [facility] Oncology and Hematology - [place] [address] [facility] [address] [place] [address] Jw Kennedy MD [address] [facility] [address] [place] [address] Scheduled Orders Name Type Priority Associated Diagnoses Orde r Schedule CBC WITH DIFFERENTIAL Lab Stat Chronic anemia Expected: 12/31/2024, Expires: 12/31/2025 COMPREHENSIVE METABOLIC PANEL Lab Stat Chronic anemia Expected: 12/31/2024, Expires: 12/31/2025 FERRITIN Lab Routine Chronic anemia Expected: 12/31/2024, Expires: 12/31/2025 IRON, TIBC, AND PERCENT SATURATION Lab Routine Chronic anemia Expected: 12/31/2024, Expires: 12/31/2025 METHYLMALONIC ACID Lab Routine Chronic anemia Expected: 12/31/2024, Expires: 12/31/2025 TRANSFERRIN RECEPTOR TFR SOLUBLE Lab Routine Chronic anemia Expected: 12/31/2024, Expires: 12/31/2025 VITAMIN B12 AND FOLATE Lab Routine Chronic anemia Expected: 12/31/2024, Expires: 12/31/2025 documented as of this encounter Visit Diagnoses Diagnosis Chronic anemia- Primary Anemia, unspecified documented in this encounter Care Teams Tube Heater Relationship Specialty Start Date End Date Jarrett Rodgers MD PCP - General 10/25/08 documented as of this encounter
[2024-12-31 15:25] LABS: Hematocrit 31.4 % (37.0-47.0); Hemoglobin 9.2 g/dL (12.0-15.0); Immature Granulocyte Percent A 0.3 % (0-0.5); Lymphocytes Absolute Auto 1.93 K/mm3 (0.9-3.2); Mean Corpuscular HGB Conc 29.3 g/dl (32-36); Mean Corpuscular Hemoglobin 22.9 pg (26-34); Mean Corpuscular Volume 78.1 fl (80-100); Nucleated Red Blood Cells Absolute Auto 0.000 K/mm3 (0.0-0.012); Nucleated Red Blood Cells Perc 0.0 % (0.0-0.2); Platelet Count Result 333 k/mm3 (150-375); Red Blood Count 4.02 M/mm3 (4.2-5.4); White Blood Count 10.5 K/mm3 (4.5-10.0)
[2024-12-31 15:27] LABS: Schistocytes None Seen
[2024-12-31 15:29] LABS: Anisocytosis 1+; Hypochromasia 1+
--- OUTSIDE RECORDS SUMMARY | 2024-12-31 15:29 | XMS_ITS | Encounter Summary ---
Author Organization [facility] Address [address] [place] [address] Care Team Providers Care Bird Raiser Name Role Phone Jarrett Rodgers MD Primary Care Provider +1- [phone] Encounter Details Date Type Department Care Team (Latest Contact Info) Description 12/19/2000 Outpatient Historical HIS [facility] Jarrett Crowell Other screening mammogram (Primary Dx) Social History Tobacco Use Types Packs/Day Years Used Date Smoking Tobacco: Never Assessed Comments Unknown Sex and Gender Information Value Date Recorded Sex Assigned at Not on file Legal Sex Female 3:20 AM CARRY OUT CLERK Gender Identity Not on file Sexual Orientation Not on file documented as of this encounter Plan of Treatment Upcoming Encounters Date Type Department Care Team (Late st Contact Info) Description 01/07/2025 4:30 PM CARRY OUT CLERK Telephone Check Up [facility] Oncology and Hematology - [place] [address] [facility] [address] [place] [address] Jw Kennedy MD [address] [facility] [address] [place] [address] documented as of this encounter Visit Diagnoses Diagnosis Other screening mammogram- Primary documented in this encounter Care Teams Bird Raiser Relationship Specialty Start Date End Date Jarrett Rodgers MD PCP - General 10/25/08 documented as of this encounter
--- OUTSIDE RECORDS SUMMARY | 2024-12-31 15:30 | XMS_ITS | Encounter Summary ---
Author Organization [facility] Address [address] [place] [address] Care Team Providers Care Clarification Operator Name Role Phone Jarrett Rodgers MD Primary Care Provider +1- [phone] Encounter Details Date Type Department Care Team (Late st Contact Info) Description 12/17/2005 Outpatient Historical HIS MAMM Yara Delcid MD [address] [place] [address] Other Screening Mammogram (Primary Dx) Social History Tobacco Use Types Packs/Day Years Used Date Smoking Tobacco: Never Assessed Comments Unknown Sex and Gender Information Value Date Recorded Sex Assigned at Not on file Legal Sex Female 3:20 AM SENIOR PRINCIPAL ARCHITECT Gender Identity Not on file Sexual Orientation Not on file documented as of this encounter Plan of Treatment Upcoming Encounters Date Type Department Care Team (Late st Contact Info) Description 01/07/2025 4:30 PM SENIOR PRINCIPAL ARCHITECT Telephone Check Up [facility] Oncology and Hematology - [place] [address] [place] [address] Jw Kennedy MD [address] [facility] [address] [place] [address] documented as of this encounter Visit Diagnoses Diagnosis Other screening mammogram- Primary documented in this encounter Care Teams Clarification Operator Relationship Specialty Start Date End Date Jarrett Rodgers MD PCP - General 10/25/08 documented as of this encounter
--- OUTSIDE RECORDS SUMMARY | 2024-12-31 15:30 | XMS_ITS | Encounter Summary ---
Author Organization [facility] Address [address] [place] [address] Care Team Providers Care Automatic Pinsetter Mechanic Name Role Phone Jarrett Rodgers MD Primary Care Provider +1- [phone] Encounter Details Date Type Department Care Team (Late st Contact Info) Description 12/09/2001 Outpatient Historical HIS MAMM Yara Delcid MD [address] [place] [address] SCREENING MAMM-MAILG NEOPL-OTHER (Primary Dx) Social History Tobacco Use Types Packs/Day Years Used Date Smoking Tobacco: Never Assessed Comments Unknown Sex and Gender Information Value Date Recorded Sex Assigned at Not on file Legal Sex Female 3:20 AM GLASS EDGER Gender Identity Not on file Sexual Orientation Not on file documented as of this encounter Plan of Treatment Upcoming Encounters Date Type Department Care Team (Late st Contact Info) Description 01/07/2025 4:30 PM GLASS EDGER Telephone Check Up [facility] Oncology and Hematology - [place] [address] [place] [address] Jw Kennedy MD [address] [facility] [address] [place] [address] documented as of this encounter Visit Diagnoses Diagnosis Other screening mammogram- Primary documented in this encounter Care Teams Automatic Pinsetter Mechanic Relationship Specialty Start Date End Date Jarrett Rodgers MD PCP - General 10/25/08 documented as of this encounter
--- OUTSIDE RECORDS SUMMARY | 2024-12-31 15:30 | XMS_ITS | Encounter Summary ---
Author Organization [facility] Address [address] [place] [address] Care Team Providers Care Electric Shovel Operator Name Role Phone Jarrett Rodgers MD Primary Care Provider +1- [phone] Encounter Details Date Type Department Care Team (Late st Contact Info) Description 12/23/2003 Outpatient Historical HIS [facility] Yara Chin MD [address] [facility] [address] [place] [address] UNSP ABNORMAL MAMMOGRAM (Primary Dx) Social History Tobacco Use Types Packs/Day Years Used Date Smoking Tobacco: Never Assessed Comments Unknown Sex and Gender Information Value Date Recorded Sex Assigned at Not on file Legal Sex Female 3:20 AM HEALTH CARE FACILITY ADMINISTRATOR Gender Identity Not on file Sexual Orientation Not on file documented as of this encounter Plan of Treatment Upcoming Encounters Date Type Department Care Team (Late st Contact Info) Description 01/07/2025 4:30 PM HEALTH CARE FACILITY ADMINISTRATOR Telephone Check Up [facility] Oncology and Hematology - [address] [place] [address] Jw Kennedy MD [address] [facility] [address] [place] [address] documented as of this encounter Visit Diagnoses Diagnosis Abnormal mammogram, unspecified- Primary documented in this encounter Care Teams Electric Shovel Operator Relationship Specialty Start Date End Date Jarrett Rodgers MD PCP - General 10/25/08 documented as of this encounter
--- OUTSIDE RECORDS SUMMARY | 2024-12-31 15:30 | XMS_ITS | Encounter Summary ---
Author Organization [facility] Address [address] [place] [address] Care Team Providers Care Tire Spotter Name Role Phone Jarrett Rodgers MD Primary Care Provider +1- [phone] Encounter Details Date Type Department Care Team (Latest Contact Info) Description 12/30/1998 Outpatient Historical HIS [facility] DRS BLDG Conversion, History Other screening mammogram (Primary Dx) Social History Tobacco Use Types Packs/Day Years Used Date Smoking Tobacco: Never Assessed Comments Unknown Sex and Gender Information Value Date Recorded Sex Assigned at Not on file Legal Sex Female 3:20 AM RRTS Gender Identity Not on file Sexual Orientation Not on file documented as of this encounter Plan of Treatment Upcoming Encounters Date Type Department Care Team (Late st Contact Info) Description 01/07/2025 4:30 PM RRTS Telephone Check Up [facility] Oncology and Hematology - [place] [address] [facility] [address] [place] [address] Jw Kennedy MD [address] [facility] [address] [place] [address] documented as of this encounter Visit Diagnoses Diagnosis Other screening mammogram- Primary documented in this encounter Care Teams Tire Spotter Relationship Specialty Start Date End Date Jarrett Rodgers MD PCP - General 10/25/08 documented as of this encounter
--- OUTSIDE RECORDS SUMMARY | 2024-12-31 15:30 | XMS_ITS | Clinical Summary ---
Author Organization [facility] Administrative Offices Address [address] [place] [address] Care Team Providers Care Senior User Experience Architect Name Role Phone Jarrett Rodgers MD Primary Care Provider +1- [phone] Allergies Active Allergy Reactions Criticality Noted Date Comments Codeine Nausea and Vomiting Low 12/31/2024 Prednisone Rash Low 12/31/2024 Medications lisinopriL (PRINIVIL) 20 mg tablet Take 1 Tablet by mouth daily. 12/02/2024 Active omeprazole (PriLOSEC) 40 mg Capsule, Delayed Release(E.C.) Take 40 mg by mouth daily. 12/26/2024 Active ferrous sulfate 325 mg (65 mg iron) tablet Take 325 mg by mouth daily. Active cyanocobalamin 1,000 mcg Tablet Take 1,000 mcg by mouth daily. Active POTASSIUM CHLORIDE ORAL Take by mouth. Active ascorbic acid, vitamin C, (VITAMIN C) 500 mg tablet Take 500 mg by mouth daily. Active CALCIUM CARBONATE ORAL Take by mouth. Active Magnesium Oxide 420 mg Tablet Take by mouth. Active Zinc Sulfate 66 mg Tablet Take by mouth. Active CALCIUM CARBONATE-VITAMI N D3 ORAL Take by mouth. 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 Gender Identity Not on file Sexual Orientation Not on file Last Filed Vital Signs Vital Sign Reading [...] Mass Index 36.11 12/31/2024 2:39 PM CDT Plan of Treatment Upcoming Encounters Date Type Department Care Team (Late st Contact Info) Description 01/07/2025 4:30 PM OPTICAL BRIGHTENER MAKER HELPER Telephone Check Up [facility] Oncology and Hematology - [place] [address] [facility] [address] [place] [address] Jw Kennedy MD [address] [facility] [address] [place] [address] Health Maintenance Due Date Last Done Comments DTAP/TDAP/TD VACCINES (1 - Tdap) 05/19/1975 Traditional Medicare (ACO) A nnual Wellness Visit 05/19/1975 COLORECTAL SCREENING 2001 Colorectal Cancer Screening [...] Maintenance Insurance BCBS BLUE ACCESS/TRUE BLUE PPO MEDICARE PART A AND B [facility] [id number] Care Teams Senior User Experience Architect Relationship Specialty Start Date End Date Jarrett Rodgers MD PCP - General 10/25/08
--- OUTSIDE RECORDS SUMMARY | 2024-12-31 15:30 | XMS_ITS | Encounter Summary ---
Author Organization [facility] Address 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 [address] [place] [address] documented as of this encounter Procedures Procedure Name Priority Date/Time Associated Diagnosis Comments MAMMO SCREENING BILAT Routine 12/22/2007 3:32 PM CDT documented in this encounter Results * MAMMO SCREENING BILAT (12/22/2007 3:32 PM CDT) Anatomical Region Laterality Modality Breast Bilateral Other 12/22/2007 3:32 PM CDT Narrative 12/23/2007 1:17 PM CDT [place] [address] [address], [place] [address] Admit Date: 12/22/2007 NIMA REYNOSO Sex: F [facility]: 1955 Primary Care Prov: JARRETT MACK CMRN: [id number] [id number] Ordering Prov: DOCTORMEÑO O Accession Number: [id number] Interpretation BILATERAL SCREENING MAMMOGRAM 12/22/2007 Reason for [...] Procedure Note Philippe Morataya MD - 12/23/2007 [place] [address] [place], [place] [address] Admit Date: 12/22/2007 NIMA REYNOSO Sex: F Admit Prov: [id number] [address] Date: 1955 Primary Care Prov: JARRETT MACK CMRN: [id number] [facility] [id number] IM[facility]ING SERVICES Ordering Prov: MEÑO PADGETT Interpretation BILATERAL SCREENING MAMMOGRAM 12/22/2007 Reason for [...] mammogram documented in this encounter Care Teams Pleating Machine Operator Relationship Specialty Start Date End Date Jarrett Rodgers MD PCP - General 10/25/08 documented as of this encounter
--- OUTSIDE RECORDS SUMMARY | 2024-12-31 15:30 | XMS_ITS | Encounter Summary ---
Author Organization [facility] Address [address] [place] [address] Care Team Providers Care Meat Cutting Block Repairer Name Role Phone Jarrett Rodgers MD Primary Care Provider +1- [phone] Encounter Details Date Type Department Care Team (Late st Contact Info) Description 12/10/2006 Outpatient Historical [facility] Yara Delcid MD [address] [place] [address] Other Screening Mammogram (Primary Dx) Social History Tobacco Use Types Packs/Day Years Used Date Smoking Tobacco: Never Assessed Comments Unknown Sex and Gender Information Value Date Recorded Sex Assigned at Not on file Legal Sex Female 3:20 AM BREAD SUPERVISOR Gender Identity Not on file Sexual Orientation Not on file documented as of this encounter Plan of Treatment Upcoming Encounters Date Type Department Care Team (Late st Contact Info) Description 01/07/2025 4:30 PM BREAD SUPERVISOR Telephone Check Up [facility] Oncology and Hematology - [place] [address] [place] [address] Jw Kennedy MD [address] [facility] [address] [place] [address] documented as of this encounter Visit Diagnoses Diagnosis Other screening mammogram- Primary documented in this encounter Care Teams Meat Cutting Block Repairer Relationship Specialty Start Date End Date Jarrett Rodgers MD PCP - General 10/25/08 documented as of this encounter
--- OUTSIDE RECORDS SUMMARY | 2024-12-31 15:30 | XMS_ITS | Encounter Summary ---
Author Organization [facility] Address 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 Gender Identity Not on file Sexual Orientation Not on file documented as of this encounter Plan of Treatment Upcoming Encounters Date Type Department Care Team (Late st Contact Info) Description 01/07/2025 4:30 PM ELECTRONICS SYSTEM MECHANIC Telephone Check Up [facility] Oncology and Hematology - [place] [address] [place] [address] [facility] [address] [place] [address] Jw Kennedy MD [address] [facility] [address] [place] [address] documented as of this encounter Visit Diagnoses Diagnosis Other screening mammogram- Primary documented in this encounter Care Teams Animal Behaviourist Relationship Specialty Start Date End Date Jarrett Rodgers MD PCP - General 10/25/08 documented as of this encounter
--- OUTSIDE RECORDS SUMMARY | 2024-12-31 15:30 | XMS_ITS | Encounter Summary ---
Author Organization [facility] Address [address] [place] [address] Care Team Providers Care Ob/Gyn Doctor Name Role Phone Jarrett Rodgers MD Primary Care Provider +1- [phone] Encounter Details Date Type Department Care Team (Late st Contact Info) Description 12/09/2003 Outpatient Historical HIS [facility] VAN Conversion, History SCREENING MAMM-MAILG NEOPL-OTHER (Primary Dx) Social History Tobacco Use Types Packs/Day Years Used Date Smoking Tobacco: Never Assessed Comments Unknown Sex and Gender Information Value Date Recorded Sex Assigned at Not on file Legal Sex Female 3:20 AM CLIPPER AND TURNER Gender Identity Not on file Sexual Orientation Not on file documented as of this encounter Plan of Treatment Upcoming Encounters Date Type Department Care Team (Late st Contact Info) Description 01/07/2025 4:30 PM CLIPPER AND TURNER Telephone Check Up [facility] Oncology and Hematology - [place] [address] [place] [address] [facility] [address] [place] [address] Jw Kennedy MD [address] [facility] [address] [place] [address] documented as of this encounter Visit Diagnoses Diagnosis Other screening mammogram- Primary documented in this encounter Care Teams Ob/Gyn Doctor Relationship Specialty Start Date End Date Jarrett Rodgers MD PCP - General 10/25/08 documented as of this encounter
[2024-12-31 15:31] LABS: Ovalocytes 1+
[2024-12-31 16:33] LABS: Alanine Aminotransferase 31 U/L (6-35); Albumin Level 4.3 g/dL (3.5-5.1); Alkaline Phosphatase 89 U/L (38-126); Anion Gap 9 mmol/L (4-12); Aspartate Amino Transferase 39 U/L (14-36); Bilirubin,Total 0.2 mg/dL (0.2-1.3); Blood Urea Nitrogen 21 mg/dL (7-17); Calcium 9.0 mg/dL (8.4-10.2); Carbon Dioxide 25 mmol/L (22-30); Chloride 103 mmol/L (98-107); Estimated Glomerular Filt Rate > 60; Glucose 113 mg/dL (65-110); Potassium 4.2 mmol/L (3.4-5.0); Sodium 137 mmol/L (137-145); Total Protein 7.7 g/dL (6.3-8.2)
[2024-12-31 16:34] LABS: Iron 13 ug/dL (37-170)
[2024-12-31 16:44] LABS: Percent Iron Saturation 3 % (20-50)
[2024-12-31 17:16] LABS: Ferritin 5.99 ng/mL (11.1-264)
[2024-12-31 17:47] LABS: Vitamin B12 > 1000.0 pg/mL (239-931)
== END 2024-12-31 15:11 | disposition home or self-care (01) ==
LOC: ANHLAB 15:12
PROVIDERS: PCP Nurse Practitioner Family; Visit Provider Internal Medicine Hematology & Oncology
DX: D64.9 Anemia, unspecified (principal)
CPT/HCPCS: 36415; 80053; 82607; 82728; 82746; 83540; 83550; 84238; 85025

== ENCOUNTER 2025-01-04 10:54 | Outpatient (CLI) | payer MEDICARE, SELFPAY ==
--- NOTE | ~2025-01-04 | DEXA_ITS ---
Bone Density Report Name: NIMA REYNOSO Age: 69 Sex: Female Ethnicity: White Date of : 1955 Indication: postmenopausal; screening for osteoporosis; height loss; Referring Provider: BARRON, LEROY Study: Bone densitometry was performed. Exam Date: January 04, 2025 Accession number: [id number] Bone Density: Region BMD T-score Z-score Classification AP Spine(L1-L4) 1.039 -0.1 1.9 Normal Femoral Neck (Left) 0.745 -0.9 0.8 Normal Total Hip (Left) 0.910 -0.3 1.2 Normal Femoral Neck (Right) 0.816 -0.3 1.4 Normal Total Hip (Right) 0.866 -0.6 0.8 Normal Total Hip Mean 0.888 -0.5 1.0 Normal World Health Organization criteria for BMD impression classify patients as: Normal (T-score at or above -1.0), Osteopenia (T-score between -1.0 and -2.5), or Osteoporosis (T-score at or below -2.5). 10-year Fracture Risk: FRAX not reported because: All T-scores for Spine Total, Hip Total, Femoral Neck at or above -1.0 Previous Exams: -- Region Exam Age BMD T-score BMD Change BMD Change Date g/cm2 vs Baseline vs Previous -- AP Spine (L1-L4) 01/04/2025 69 1.039 -0.1 -2.5%# -6.0%* 12/17/2022 67 1.106 0.5 3.8%# 3.3%# 02/05/2019 63 1.071 0.2 0.5% -0.1% 01/01/2017 61 1.072 0.2 0.6% 0.6% 03/17/2012 56 1.066 0.2 Total Hip(Left) 01/04/2025 69 0.910 -0.3 4.4%* -2.6%# 12/17/2022 67 0.934 -0.1 7.1%# 2.7%# 02/05/2019 63 0.909 -0.3 4.3%* 2.1% 01/01/2017 61 0.891 -0.4 2.2% 2.2% 03/17/2012 56 0.872 -0.6 Total Hip(Right) 01/04/2025 69 0.866 -0.6 -0.3% 0.4%# 12/17/2022 67 0.863 -0.7 -0.7%# 1.3%# 02/05/2019 63 0.851 -0.7 -2.0% -0.9% 01/01/2017 61 0.859 -0.7 -1.1% -1.1% 03/17/2012 56 0.868 -0.6 -- *Denotes significance at 95% confidence level, LSC for AP Spine = 0.022 g/cm2, LSC for Total Hip = 0.027 g/cm2 # Denotes dissimilar scan types or analysis methods Clinical Information Provided by Patient: Has used the following medications: Vitamin D, Calcium Has the following medical conditions: anemia Patient maximum height was 65 Menopause Age: 53 No regular weight bearing exercise Drinks caffeinated beverages Onset of menses at age 12 Number of children 2 Impression: The patient has normal bone mass. The BMD for the AP Spine (L1-L4) decreased, changing by -6.0% since the last DXA exam. Discussion: BONE DENSITY IS ABOVE THE MINIMUM DESIRABLE LEVEL AT ALL SKELETAL SITES TESTED. This patient?s bone mineral density is above the minimum desirable level (T-score -1.0 or better) at all sites measured. The patient should follow a healthful lifestyle (good nutrition with adequate calcium and vitamin D, and appropriate weight-bearing exercise). Follow-Up: Consider repeating this study in 3 to 4 years to reassess this patient's status, or sooner if there is some new clinical indication. Reported by: CAROLINA on 01/04/2025 11:20:00 AM. Reviewed, dictated and finalized at location A.
== END 2025-01-04 10:55 | disposition home or self-care (01) ==
LOC: MICIMG 10:55
PROVIDERS: PCP Nurse Practitioner Family; Visit Provider Nurse Practitioner
DX: Z78.0 Asymptomatic menopausal state (principal); M85.88 Other specified disorders of bone density and structure, other site
CPT/HCPCS: 77080

== ENCOUNTER 2025-02-01 13:23 | Outpatient (CLI) | payer MEDICARE, SELFPAY ==
--- NOTE | ~2025-02-01 | MM_ITS ---
EXAMINATION: MM screening christen BI w graeme HISTORY: Screening. TECHNIQUE: Craniocaudal and mediolateral oblique 3-D tomosynthesis images were obtained and synthetic 2-D images were generated. CAD analysis was submitted and interpreted. COMPARISON: 2023, 2022, and 2019 BREAST PARENCHYMAL COMPOSITION: Dense: The breasts are heterogeneously dense FINDINGS: There are findings consistent with the known breast cysts. No suspicious masses are seen. There are no suspicious calcifications. No unexplained architectural distortion is seen. There are no skin or nipple abnormalities identified. There is no adenopathy seen on the images submitted. IMPRESSION: No mammographic evidence to suggest malignancy is seen. The patient may return to screening mammography as per ACR guidelines. BI-RADS 2 - Benign. Reviewed, dictated and finalized at location B. SLAND CONSERVATIONIST
== END 2025-02-01 13:24 | disposition home or self-care (01) ==
LOC: MICIMG 13:24
PROVIDERS: PCP Family Medicine Adolescent Medicine; Visit Provider Nurse Practitioner
DX: Z12.31 Encounter for screening mammogram for malignant neoplasm of breast (principal)
CPT/HCPCS: 77063; 77067